=== PATIENT | female | born 1965 | race Caucasian/White ===

== ENCOUNTER → 2021-11-02 11:55 | Outpatient (CLI) | payer OTHER, SELFPAY ==
--- NOTE | 2021-11-02 13:31 | DI.MAMMO_ITS ---
Exam(s) MAMMO DIAGNOSTIC BI EXAM: MAMMO DIAGNOSTIC BI CLINICAL HISTORY: palpable breast lump 12:00, 6cm from areola on rt,n63.15 TECHNIQUE: Bilateral full field digital CC and MLO mammographic images were obtained with 3D tomosyn thesis and utilizing computer aided detection (CAD). COMPARISON: Priors not available at this time for comparison. Should they become available, an adde ndum may be necessary at that time. FINDINGS: Masses/Architectural Distortion: None seen. Microcalcifications: No suspicious pleomorphic-type are seen. Skin Thickening/Nipple Retraction: None. IMPRESSION: 1. No significant interval change with no specific features of malignancy noted. 2. The patient is scheduled to return on 11/03/2021 for ultrasound of the right breast. BI-RADS Category 0 - Assessment Incomplete: Need additional imaging evaluation Breast Density - Category A - Almost entirely fatty Breast density category C or D implies that the patient has dense breast tissue. Dense breast tissue is very common and is not abnormal but dense breast tissue can make it harder to find cancer on a ma mmogram. Also, dense breast tissue may increase their breast cancer risk. This information about the result of the mammogram report was provided to the patient to raise their awareness. Use this report when you speak with the patient about their risks for breast cancer, which includes their family hist ory. At that time, you may recommend for more screening tests (Ultrasound or MRI) as they might be us eful based on their risk. A negative radiographic report should not delay biopsy if a dominant or clinically suspicious mass is present. Up to ten percent of cancers are not identified on mammography. A negative report may reinforce clinical impression. Adenosis and dense breasts may obscure an underlying neoplasm. False positive reports average 6 to 10%. Patient will receive a letter notifying them of these results.
== END ==
PROVIDERS: Visit Provider Nurse Practitioner Women's Health
DX: N63.15 Unspecified lump in the right breast, overlapping quadrants (principal)
CPT/HCPCS: 77062; 77066; G0279

== ENCOUNTER 2023-10-02 10:34 | Emergency (ER) | payer OTHER, SELFPAY ==
[2023-10-02 10:36] VITALS: BP 140/90; PULSE 65; RESP 18; TEMP 36.6; O2SAT 97
--- NOTE | 2023-10-02 10:45 | DI.CT_ITS ---
Exam(s) CT HEAD WO EXAM: CT HEAD WO CLINICAL HISTORY: Head Injury, Posterior scalp hematoma. TECHNIQUE: Imaging Protocol: Axial computed tomography images with coronal and sagittal reformatted images were created and reviewed COMPARISON: No exams were available for comparison FINDINGS: Ventricles and Extra axial spaces: Normal in size and morphology for the patient's age. Hemorrhage: None. Cerebral parenchyma: No evidence of acute infarct or mass. Midline shift: None. Brainstem/Cerebellum: Normal. Calvarium: Normal. Visualized Paranasal sinuses:Clear. Mastoids: Clear. Soft Tissues: Unremarkable. ORBITS: Unremarkable. PITUITARY: Not enlarged. IMPRESSION: No acute intracranial process. RADIATION DOSE DELIVERED: Total DLP DATA REPOSITORY: All CT scans at this facility are submitted to the National Radiology Data Registry (NRDR) Dose Index Registry (DIR) with the [employer] (ACR). RADIATION OPTIMIZATION: All CT scans at this facility use at least one of these dose optimization te chniques: automated exposure control; mA and/or kV adjustment per patient size (includes targeted exa ms where dose is matched to clinical indication); or iterative reconstruction.
--- NOTE | 2023-10-02 10:58 | W.ED.GENAD ---
Discharge Plan Disposition Patient Disposition: Home Condition: Stable Discharge Details Clinical Impression: Hematoma of occipital region of scalp, Closed head injury Primary Care Provider: [facility] Provider: Coni Westbrook Home Meds and New Rx's Prescriptions: Continued atorvastatin 20 mg tablet 20 mg PO DAILY Fish Oil 120-180-500 mg capsule 1 cap PO DAILY multivitamin Tablet 1 tab PO DAILY digestive enzymes Tablet 1 tab PO DAILY cholecalciferol (vitamin D3) 50 mcg (2,000 unit) capsule 50 mcg PO DAILY potassium 75 mg tablet 75 mg PO DAILY clobetasol 0.05 % ointment 1 applic TOPICAL DAILY PRN Discharge Instructions Instructions: Head Injury (ED), Hematoma (ED) Additional Instructions: Head CT is within normal limits. You may be sore for the next couple of days. Apply ice. You may take Tylenol every 4-6 hours as needed for pain. Return to the ER for any worsening confusion, headache not relieved by Tylenol ibuprofen, vomiting, blurry vision or double vision, feeling as if your neck is unstable, worsening neck pain or other concerns. Discharge Data Discharge Date/Time-TO BE ENTERED AT DEPARTURE: 10/02/23 12:15 HPI General Mode of arrival: ambulatory. Date/Time Provider Initiated Documentation: 10/02/23 10:39. Limitations to Documentation: no limitations. Information obtained by: patient, RN notes reviewed and old records reviewed. HPI Narrative: 57-year-old female presents to the ER with a chief complaint of head injury which occurred this morning at approximately 9 AM. Patient reports that she was working with a ladder and had a large crowbar fall off the top of the ladder and hit the back of her head and right lateral shoulder. She denies any headache dizziness nausea vomiting or blurry vision. She does take Advil on a regular basis for some shoulder pain. She does have a small scalp hematoma noted to the back of her head and a right subconjunctival hemorrhage noted which she reports was not there she did not notice it this morning. She does wear contacts. She denies being hit in the eye. Past medical history includes high cholesterol and depression. Related Data Home Medications Medication Instructions Recorded Confirmed atorvastatin 20 mg tablet 20 mg PO DAILY 10/25/21 10/02/23 cholecalciferol (vitamin D3) 50 50 mcg PO DAILY 10/25/21 10/02/23 mcg (2,000 unit) capsule digestive enzymes 1 tab PO DAILY 10/25/21 10/02/23 multivitamin 1 tab PO DAILY 10/25/21 10/02/23 omega 0-mdc-baq-fish oil 120 1 cap PO DAILY 10/25/21 10/02/23 mg-180 mg-500 mg capsule (Fish Oil) potassium 75 mg tablet 75 mg PO DAILY 10/25/21 10/02/23 clobetasol 0.05 % topical ointment 1 applic topical DAILY PRN 10/02/23 10/02/23 Allergies Allergy/AdvReac Type Severity Reaction Status Date / Time No Known Allergies Allergy Verified 10/02/23 10:39 General Stated Complaint: HeadInjury ALEX: 3 Review of Systems All systems reviewed & are unremarkable except as noted in HPI and below Neurologic Neurologic: Reports as per HPI Exam Narrative Exam Narrative: General: Well Developed, Awake and Alert, conversant. Skin: Warm and Dry HEENT: Head: See HEENT T exam, small hematoma on the scalp palpated. Normocephalic Eyes: Pupils PERRLA, EOM's intact. No periorbital eccymosis or step off Ears: Canal patent. Tympanic membranes are clear . No mayen's sign, no hemptympanum. Nose/Face: Atraumatic. Facial bones nontender to palpation and stable with manipulation. Mouth/Throat: No intraoral trauma. Teeth and mandible are intact. Neck: No midline tenderness, no step off, no deformity to palpation of C-spine. Trachea midline. Neuro: ANO x4, GCS 15, cranial nerves II through XII intact. Motor and sensory exam nonfocal. Reflexes are symmetric. [facility] Head images: 1. Small hematoma of the scalp approximately 1 cm x 1 cm in diameter, no obviously palpable crepitus or step-off. Course Vital Signs Vital signs: Vital Signs Temperature 36.6 C 10/02/23 10:36 Pulse 65 10/02/23 10:36 Respiratory Rate 18 10/02/23 10:36 Blood Pressure 140/90 10/02/23 10:36 Pulse Oximetry 97 10/02/23 10:36 Temperature 36.6 C 10/02/23 10:36 Temperature Source Temporal Artery Scan 10/02/23 10:36 Pulse 65 10/02/23 10:36 Respiratory Rate 18 10/02/23 10:36 Respiratory Effort Normal, Non-Labored 10/02/23 10:39 Blood Pressure 140/90 10/02/23 10:36 Blood Pressure Position Sitting 10/02/23 10:36 Pulse Oximetry 97 10/02/23 10:36 Oxygen Delivery Method Room Air 10/02/23 10:36 Oxygen Flow Rate 0 10/02/23 10:36 Pain Level 3 10/02/23 10:36 Medical Decision Making 57-year-old female presents to the ER with a chief complaint of head injury which occurred this morning at approximately 9 AM. Patient reports that she was working with a ladder and had a large crowbar fall off the top of the ladder and hit the back of her head and right lateral shoulder. She denies any headache dizziness nausea vomiting or blurry vision. She does take Advil on a regular basis for some shoulder pain. She does have a small scalp hematoma noted to the back of her head and a right subconjunctival hemorrhage noted which she reports was not there she did not notice it this morning. She does wear contacts. She denies being hit in the eye. Past medical history includes high cholesterol and depression. CT ordered without contrast. No significant neurodeficits no weakness dizziness blurry vision. EOMs intact there is a small subconjunctival hemorrhage noted to the right outer canthus of the eye. Patient does take Advil. Patient is concerned for head injury due to upcoming trip in a plane. Differential diagnosis includes but not limited to skull fracture, subdural hematoma, concussion, less likely epidural or severe head bleed. CT head negative for any acute intracranial hemorrhage or mass effect. No acute fracture noted on V rad read. Patient to be discharged. Patient discharged in hemodynamically stable condition. Alert and oriented x 3. This text was generated using [employer] system, please disregard any oddities of phrase or misspellings. Quality:SDOH Health Related Social Needs: No Data to Display PFSH All Active Problems (Updated 10/02/23 @ 12:03 by Coni Westbrook NP) Closed head injury (Acute) Hematoma of occipital region of scalp (Acute) Breast lump on right side at 12 o'clock position (Acute) High cholesterol (Chronic) Depression (Chronic) Medical History FH: breast cancer in first degree relative Surgical History History of in vitro fertilization Pt had oocyte retrieval, but no Family History Father Heart disease Hyperlipidemia Hypertension Myocardial infarct Brother Breast cancer Brother Myocardial infarct Heart disease Brother No problems noted. Mother Stroke Heart disease Osteoporosis Social History Smoking/Tobacco Use Status: Never Smoking risk assessment performed?: Yes Alcohol Intake: current Alcohol Intake frequency: a few times a month Drug use: Never Substance use type: does not use Sexually active: Yes Do you think of yourself as: lesbian/lombardo/homosexual Current gender identity: female Female Reproductive History Menstrual control method: none Menopause type: natural History History 0 Para Hx # Term Pregnancies Multiple births Hx # Pregnancies Ectopic pregnancies AB induced Hx Number of Living Children AB spontaneous
--- NOTE | 2023-10-02 11:57 | DI.VRAD_ITS ---
PROCEDURE INFORMATION: Exam: CT Head Without Contrast Exam date and time: 10/02/2023 11:21 AM Age: 57 years old Clinical indication: Head Injury or trauma; Other: Falling crowbar on back of head; Other: Head injury, posterior scalp hematoma TECHNIQUE: Imaging protocol: Computed tomography of the head without contrast. COMPARISON: No relevant prior studies available. FINDINGS: Brain: No acute intracranial hemorrhage or mass effect. No subdural collections are seen. Cerebral ventricles: Size within normal range for age. No midline shift. Paranasal sinuses: Visualized portions of paranasal sinuses are well aerated. Mastoid air cells: Visualized portions of mastoid sinuses are not opacified. Bones: Unremarkable. No acute fracture. Soft tissues: Other than as stated above, no obvious acute abnormality. IMPRESSION: No acute intracranial hemorrhage or mass effect. Dictated and Authenticated by: Tee Roger MD. Ordering:ITALO Newberry MD
[2023-10-02 12:11] VITALS: BP 126/81; PULSE 59; RESP 15; TEMP 36.4; O2SAT 96
== END 2023-10-02 12:15 | disposition home or self-care (01) ==
PROVIDERS: Emergency Provider Registered Nurse Emergency
DX: S00.03XA Contusion of scalp, initial encounter (principal); H11.1 Conjunctival degenerations and deposits; W27.8XXA Contact with other nonpowered hand tool, initial encounter
CPT/HCPCS: 99284; 70450; 99283